=== PATIENT | male | born 1955 | race Hispanic/Latino ===

== ENCOUNTER → 2024-06-28 | Outpatient (CLI) | payer OTHER ==
--- NOTE | 2024-06-28 14:01 | HMCIMG ---
CT HEART SAVER PROMOTIONAL HISTORY: Cardiac calcification scoring. FINDINGS: The cardiac calcification scoring is 441. LM = 22.6, LAD = 193.2, CX = 179.2, and RCA = 45.9. Limited examination of the heart was performed. The study is done for additional or incidental findings. IMPRESSION: Small right pleural effusion with subjacent passive atelectasis. No other additional findings.
== END | disposition home or self-care (01) ==
LOC: RAH 12:33
PROVIDERS: ATTEND Family Medicine
DX: Z13.6 Encounter for screening for cardiovascular disorders (principal); J90 Pleural effusion, not elsewhere classified
CPT/HCPCS: 75571

== ENCOUNTER → 2024-11-11 | Outpatient (CLI) | payer MEDICARE ==
--- NOTE | 2024-11-11 15:24 | HMCIMG ---
Exam: Ultrasound deep veins left lower extremity. History: Left lower extremity swelling Findings: [place] scale and color/doppler static images of the deep veins of the left lower extremity were submitted without a comparison exam. There is normal response to compression and augmentation maneuvers throughout the visualized deep veins of the left lower extremity to include the: common femoral vein, superficial femoral vein, popliteal and posterior tibial veins Patent blood flow was detected with color/doppler imaging. No fluid collection or other abnormality is delineated. Impression: There is no left lower extremity deep venous thrombus formation. . /Watson
== END | disposition home or self-care (01) ==
LOC: RAH 13:55
PROVIDERS: ATTEND Internal Medicine Pulmonary Disease
DX: M79.89 Other specified soft tissue disorders (principal); R60.0 Localized edema
CPT/HCPCS: 93971